=== PATIENT | female | born 1970 | race Two or more races ===

== ENCOUNTER 2022-09-11 04:30 | Day surgery (SDC) | payer OTHER ==
[2022-09-07 13:02] VITALS: BMI 29.8
[2022-09-11] MEDS ORDERED: BUPIVACAINE HCL/PF 0.25% (2.5MG/ML) 10 ML VIAL ONE (09:18)
[2022-09-11] MEDS ORDERED: LACTATED RINGERS SOLUTION 1,000 ML IV SCH (11:30)
[2022-09-11] MEDS ORDERED: ROCURONIUM BROMIDE 50 MG/5 ML SYRINGE ONE ×2 (11:38→12:41)
[2022-09-11] MEDS ORDERED: PROPOFOL 20 ML ONE ×4 (11:38→12:40)
[2022-09-11] MEDS ORDERED: SUCCINYLCHOLINE CHLORIDE 200 MG/10 ML SYRINGE ONE (11:38)
[2022-09-11] MEDS ORDERED: MIDAZOLAM HCL 2 MG/2 ML SINGLE DOSE VIAL ONE (11:39)
[2022-09-11] MEDS ORDERED: cefOXitin SODIUM 1 GM VIAL (RESTRICTED TO ID) IVPB ONE (11:50)
[2022-09-11] MEDS ORDERED: CEFOXITIN SODIUM 1 GM IVPB ONE (11:55)
[2022-09-11] MEDS ORDERED: METOPROLOL TARTRATE 5 MG/5 ML VIAL ONE (11:59)
[2022-09-11] MEDS ORDERED: BUPIVACAINE HCL/PF 0.25% (2.5MG/ML) 10 ML VIAL IJ ONE (12:10)
[2022-09-11] MEDS ORDERED: GLYCOPYRROLATE 0.2 MG/1 ML VIAL ONE ×3 (12:24→12:30)
[2022-09-11] MEDS ORDERED: NEOSTIGMINE METHYLSULFATE 0.5 MG/ML - 10 ML MDV ONE (12:24)
[2022-09-11] MEDS ORDERED: DEXAMETHASONE SOD PHOSPHATE 4 MG/1 ML VIAL ONE (12:24)
[2022-09-11] MEDS ORDERED: ONDANSETRON 4 MG/2 ML VIAL ONE (12:24)
[2022-09-11 15:51] VITALS: BP 137/66; PULSE 62; RESP 20; TEMP 97.1
== END 2022-09-11 16:15 | disposition home or self-care (01) ==
LOC: JASU-SURG 04:30
PROVIDERS: ATTEND Surgery
PROC: 0FT44ZZ Resection of Gallbladder, Percutaneous Endoscopic Approach (ICD-10-PCS; principal; 2022-09-11 11:00)
DX: K81.1 Chronic cholecystitis (principal)
CPT/HCPCS: 88304-TC; 94760